=== PATIENT | female | born 1955 | race Caucasian/White ===

== ENCOUNTER 2018-08-26 07:59 | Observation (INO) | payer BC ==
--- NOTE | 2018-08-24 15:44 | PREOPHP ---
DATE OF ADMISSION: 08/26/2018 Scheduled date of surgery is 08/26/2018. HISTORY OF PRESENT ILLNESS: The patient is a 63-year-old female in overall stable health, who recently underwent screening mammography which revealed focal asymmetry in the left upper quadrant. Ultrasound revealed in the left breast upper outer quadrant at 1 o'clock 7 cm from the nipple was a 0.5 x 0.3 x 0.5 mass in posterior depth which was suspicious. Core biopsy revealed invasive ductal carcinoma, estrogen and progesterone receptor positive, HER-2 negative. The patient states she had a prior needle localization in this area in 2012 that was negative. She has no family history of breast cancer. PAST MEDICAL HISTORY: MEDICATIONS: Hydrochlorothiazide and amlodipine for hypertension. ALLERGIES: NONE. OPERATIONS: section. OBSTETRIC AND GYNECOLOGIC HISTORY: 4, para 4, menopause many years ago. PHYSICAL EXAMINATION: VITAL SIGNS: The patient is 5-feet, 176 pounds. Vital signs within normal limits. HEENT: Within normal limits. CHEST: Clear. HEART: Regular rate, rhythm. BREASTS: Large and ptotic. There was chronic inversion of the left nipple. There was no palpable mass in either breast. No palpable axillary or supraclavicular lymphadenopathy. ABDOMEN: Soft. PELVIC AND RECTAL: Per primary care physician. EXTREMITIES: Without edema. NEUROLOGIC: Physiologic. ASSESSMENT: Invasive ductal carcinoma, left breast. PLAN: Left breast partial mastectomy with preoperative needle localization and left axillary sentinel lymph node biopsy. I have had a full discussion with the patient regarding the nature of her condition and the nature of the surgery including use of a drain, ndications, alternatives, options and risks including bleeding, infection, injury to adjacent structures or organs, need for additional surgery based on final pathology, need for additional treatments, chemotherapy, radiation therapy, hormonal blockade or others based on final pathology, scarring, deformity of the breast and/or nipple, et cetera. All questions have been answered. She understands and agrees to proceed. Dictated By: DORI CHAMBERS/PEPE Conf#: [id number] DID#: [id number] MTDD
[~2018-08-26] VITALS: Ht 152.4 cm; Wt 80.3 kg
[2018-08-26] VITALS (26 sets, daily range): BP systolic 105–150; BP diastolic 54–80; PULSE 62–80; RESP 13–22; Ht 152.4 cm; Wt 80.3 kg
[~2018-08-26 07:59] MED LIST: AMLODIPINE; CEFAZOLIN 2 GM/50 ML (PMX) 50 ML IVPB SCH; HCTZ; OMEPRAZOLE; SOD CHLORIDE 0.9% 1,000 ML IV SCH
[2018-08-26] MEDS ORDERED: HYDR25TA6 PO (10:35)
[2018-08-26] MEDS ORDERED: AMLO5TAB4 PO (10:35)
--- NOTE | 2018-08-26 11:56 | HPN ---
Date/Time of Note Date/Time of Note DATE: 08/26/18 TIME: 11:56 Interval H&P Admission Note Pt. seen H&P reviewed: No system changes DORI HENRIQUEZ Aug 26, 2018 11:56
--- NOTE | 2018-08-26 12:09 | PREAC ---
Date/Time of Note Date/Time of Note DATE: 08/26/18 TIME: 12:09 Anesthesia Eval and Record Evaluation Time Pre-Procedure Interview DATE: 08/26/18 TIME: 12:09 Age 63 Sex female NPO: 8 hrs Preoperative diagnosis breast CA Planned procedure Mastectomy Past Medical History Past Medical History: Includes Cardio: HTN, Dyslipidemia GI: GERD, Obesity Surgery & Anesthesia Issues No known issue Meds Anticoagulation: No Beta Lamberto within 24 hr: No Reason Beta Lamberto not given: Pt. not on B-Lamberto Reported Medications Amlodipine Besylate* (Norvasc*) 5 Mg Tablet, 5 MG PO DAILY, TAB 08/26/18 Hydrochlorothiazide* (Hydrochlorothiazide*) 25 Mg Tab, 25 MG PO DAILY, #30 TAB 08/26/18 Discontinued Reported Medications [Omeprazole] No Conflict Check 03/26/18 [Hctz] No Conflict Check 03/26/18 [Amlodipine] No Conflict Check 03/26/18 Current Medications Sodium Chloride 1,000 ml @ 75 mls/hr [id number] IV Last administered on 08/26/18at 11:15; Admin Dose 75 MLS/HR; Start 08/26/18 at 06:00; Stop 08/26/18 at 16:00 Cefazolin Sodium/ Dextrose 50 ml @ 100 mls/hr PREOP IVPB ; Start 08/26/18 at 06:00; Stop 08/26/18 at 17:00 Meds reviewed: Yes Allergies Coded Allergies: No Known Allergy (Unverified , 08/26/18) Allergies Reviewed: Yes Labs/Studies Labs Reviewed: Reviewed by anesthesiologist test: Negative Studies: ECG Pre-procedure Exam Last vitals Vital Signs Date Temp Pulse Resp B/P (MAP) Pulse Ox O2 O2 Flow FiO2 Time Delivery Rate 08/26/18 98.0 75 16 131/79 96 Room Air 10:20 (96) Airway: Adequate mouth opening, Adequate thyromental dist Mallampati: Mallampati II Teeth: Normal Lung: Normal Heart: Normal ASA Physical Status ASA physical status: 2 Emergency: None Planned Anesthetic General/MAC: ETT Pre-operative Attestations Prior to commencing anesthesia and surgery, the patient was re-evaluated, there was verification of: *The patient's identity *The results of appropriate recent lab work and preoperative vital signs *The above evaluation not changing prior to induction *Anesthetic plan, risk benefits, alternative and complications discussed with patient/family; questions answered; patient/family understands, accepts and wishes to proceed. REYES HARRIS Aug 26, 2018 12:09
[2018-08-26] MEDS ORDERED: ISOSULFAN BLUE 1% 5 ML INJ SC ONE (12:14)
[2018-08-26] MEDS ORDERED: HYDROmorphONE 1 MG/5 ML IV SYRINGE IV PRN ×3 (12:30)
[2018-08-26] MEDS ORDERED: METOCLOPRAMIDE 10 MG INJ IV PRN (12:30)
[2018-08-26] MEDS ORDERED: ONDANSETRON 4 MG INJ IV PRN ×2 (12:30→14:30)
[2018-08-26] MEDS ORDERED: DIPHENHYDRAMINE 50 MG INJ IV PRN (12:30)
[2018-08-26] MEDS ORDERED: FENTAnyl 50 MCG/ML VIAL IV PRN ×2 (12:30)
[2018-08-26] MEDS ORDERED: MEPERIDINE 25 MG INJ IV PRN (12:30)
[2018-08-26] MEDS ORDERED: ALBUTEROL 0.083% (NEB) 2.5 MG/3 ML AMP HHN PRN (12:30)
[2018-08-26] MEDS ORDERED: FENTAnyl 50 MCG/ML VIAL ONE (12:42)
[2018-08-26] MEDS ORDERED: SUGAMMADEX SODIUM 200 MG/2 ML VIAL IV ONE (14:18)
[2018-08-26] MEDS ORDERED: ROCURONIUM 50 MG INJ ONE (14:18)
[2018-08-26] MEDS ORDERED: CEFAZOLIN 1 GM INJ ONE (14:18)
[2018-08-26] MEDS ORDERED: LIDOCAINE 100 MG SYRINGE ONE (14:18)
[2018-08-26] MEDS ORDERED: PROPOFOL 20 ML ONE (14:18)
[2018-08-26] MEDS ORDERED: SUCCINYLCHOLINE CHLORIDE 100 MG/5 ML SYG IV ONE (14:18)
[2018-08-26] MEDS ORDERED: CEFAZOLIN 2 GM/50 ML (PMX) 50 ML IVPB SCH (14:30)
[2018-08-26] MEDS ORDERED: HYDROmorphONE 1 MG/ML SYG SC PRN (14:30)
[2018-08-26] MEDS ORDERED: DIPHENHYDRAMINE 25 MG CAP PO PRN (14:30)
--- NOTE | 2018-08-26 14:35 | SIPON ---
Date/Time of Note Date/Time of Note DATE: 08/26/18 TIME: 14:34 Operative Report Preoperative Diagnosis invasive ductal carcinoma left breast Postoperative Diagnosis same Operation/Procedure Performed left breast partial mastectomy with pre-op needle localization and left axillary sentinel lymph node biopsy Surgeon see signature line emergency medicine physician assistant none Anesthesia: general Estimated blood loss: 0 - 10 ml's Transfusion Required none Specimen left breast cancer; left axillary lymph nodes Grafts/Implants none Complications none DORI HENRIQUEZ Aug 26, 2018 14:35
[2018-08-26] MEDS: D5W-0.45 NACL + KCL 20 MEQ 1,000 ML IV SCH (17:19)
--- NOTE | 2018-08-26 18:03 | OPR ---
DATE OF OPERATION: 08/26/2018 SURGEON: Dori Nagy MD SKIMMER: None. ANESTHESIOLOGIST: Kvng Smith MD TYPE OF ANESTHESIA: General. PREOPERATIVE DIAGNOSIS: Invasive ductal carcinoma, left breast. POSTOPERATIVE DIAGNOSIS: Invasive ductal carcinoma, left breast. OPERATION PERFORMED: Left breast partial mastectomy with preoperative needle localization and left axillary sentinel lymph node biopsy. DESCRIPTION OF PROCEDURE: The patient was taken to the operating room and under general anesthesia with sequential compression device stockings in place, she was prepped and draped in the usual fashion. Prior to prepping, I injected 3 mL of Lymphazurin at 2 o'clock at the areolar border subdermally. The lesion was located at 1 o'clock 7 cm from the nipple posterior depth. A transverse curvilinear upper breast incision was made, achieving hemostasis with cautery. Flaps were dissected circumferentially and the wire was brought into the field. The appropriate section of breast tissue was resected with a wide margin down to the chest wall, achieving hemostasis with cautery and orienting the specimen with suture markers placed anterior, medial and superior. Specimen radiograph was performed confirming the presence of the lesion. The field was irrigated with sterile water and hemostasis was secured with cautery. Incision was closed with interrupted 3-0 Vicryl, deep dermal subcutaneous sutures followed by continuous 4-0 Monocryl subcuticular suture. A vertical left axillary incision was made, achieving hemostasis with cautery and incising in the clavipectoral fascia. A blue stained sentinel node was identified as were 3 other large palpable nodes and accordingly a lower level dissection was performed using the [employer] electrosurgical device. Specimen was given to pathology and grossly with touch prep there was no evidence of metastatic disease. The field was irrigated with sterile water and hemostasis was secured. Through a separate incision inferolaterally, a large flat Deng-Mckeon drain was placed into the axilla and sutured to the skin with a 2-0 nylon suture. After ascertaining the hemostasis was secure the clavipectoral fascia was closed with interrupted 3-0 Vicryl. Subcutaneous tissue was closed with interrupted 3-0 Vicryl and the skin was closed with continuous 4-0 Monocryl subcuticular suture. Mastisol and 1/2-inch Steri-Strips were applied to both incisions followed by dry sterile dressing. Final sponge and needle counts were correct. The patient tolerated the procedure well and left the operating room in good condition. Dictated By: DORI CHAMBERS/PEPE Conf#: [id number] DID#: [id number] MTDD
[2018-08-26] MEDS: ACETAMINOPHEN 325 MG TAB PO PRN (18:45)
--- NOTE | 2018-08-26 18:57 | PAC ---
Date/Time of Note Date/Time of Note DATE: 08/26/18 TIME: 18:56 Post-Anesthesia Notes Post-Anesthesia Note Last documented vital signs Vital Signs Date Temp Pulse Resp B/P (MAP) Pulse Ox O2 O2 Flow FiO2 Time Delivery Rate 08/26/18 97.9 18:45 08/26/18 62 17 116/58 98 Room Air 15:51 (77) 08/26/18 6.0 14:41 Activity: WNL Respiratory function: WNL Cardiovascular function: WNL Mental status: Baseline Pain reasonably controlled: Yes Hydration appropriate: Yes Nausea/Vomiting absent: Yes REYES HARRIS Aug 26, 2018 18:57
[2018-08-26] MEDS: HYDROCODONE/APAP (5/325) TAB PO PRN (20:21)
[2018-08-26] MEDS: CEFAZOLIN 2 GM/50 ML (PMX) 50 ML IVPB SCH (21:04)
[2018-08-27] MEDS ORDERED: AMLODIPINE 5 MG TAB PO SCH
[2018-08-27] MEDS: ACETAMINOPHEN 325 MG TAB PO PRN ×2 (00:21→06:16)
[2018-08-27] MEDS: D5W-0.45 NACL + KCL 20 MEQ 1,000 ML IV SCH ×2 (00:26→10:26)
[2018-08-27 00:59] VITALS: BP 141/62; PULSE 71; RESP 17
[2018-08-27] MEDS: CEFAZOLIN 2 GM/50 ML (PMX) 50 ML IVPB SCH (05:10)
[2018-08-27 06:07] VITALS: BP 123/66; PULSE 67; RESP 20
[2018-08-27 07:33] VITALS: BP 124/64; PULSE 64; RESP 18
[2018-08-27] MEDS ORDERED: HYDROCHLOROTHIAZIDE 25 MG TAB PO SCH (09:00)
--- NOTE | 2018-08-27 09:06 | PN ---
Date/Time of Note Date/Time of Note DATE: 08/27/18 TIME: 09:01 Assessment/Plan Lines/Catheters IV Catheter Type (from Nrs): Peripheral IV Subjective Detailed Summary Free Text/Dictation AVSS Took [place] x 1 - ambulated with assistance. Left breast and axilla incisions clean and dry with intact steristrips RUTH 12 cc serosang overnight Imp. Stable Plan: Discharge with drain teaching/supplies f/u 09/02 office Rx [place] 5/325 #24 Instructions/limitations discussed Exam/Review of Systems Vital Signs Vitals Vital Signs Date Temp Pulse Resp B/P (MAP) Pulse Ox O2 O2 Flow FiO2 Time Delivery Rate 08/27/18 98.3 64 18 124/64 95 07:33 (84) 08/27/18 Room Air 00:59 08/26/18 6.0 14:41 Intake and Output 08/26/18 08/26/18 08/27/18 1515:00 23:00 07:00 IntakeIntake Total 1100 ml 225 ml 550 ml OutputOutput Total 10 ml 2 ml 12 ml BalanceBalance 1090 ml 223 ml 538 ml DORI HENRIQUEZ Aug 27, 2018 09:06
[2018-08-27] MEDS: HYDROCODONE/APAP (5/325) TAB PO PRN (10:00)
== END 2018-08-27 11:10 | disposition home or self-care (01) ==
LOC: SDS 07:59 → MS1 16:55
PROVIDERS: ADMIT Surgery; ATTEND Surgery
DX: C50.412 Malignant neoplasm of upper-outer quadrant of left female breast (principal); Z17.0 Estrogen receptor positive status [ER+]
CPT/HCPCS: 19301; 38525; 38900; 88307; 88331; J0690; J1170; J2001; J2405; J3010; J3480; Z7500; Z7512; Z7610; G0378; Q9968